=== PATIENT | female | born 1975 | race Caucasian/White ===

== ENCOUNTER → 2017-10-29 | Outpatient (CLI) | payer OTHER ==
--- NOTE | 2017-10-30 08:33 | RADIOLOGY IMAGING REPORT ---
FACILITY: [facility] [place] PATIENT NAME: ISABEL CHAPIN : [id number] MR: [id number] V: [id number] EXAM DATE: ORDERING PHYSICIAN: GERDA GOMEZ TECHNOLOGIST: Lydia Starkey PROCEDURE:BILATERAL DIGITAL SCREENING MAMMOGRAM WITH CAD ASSISTED INTERPRETATION & 3D TOMOSYNTHESIS COMPARISON:None this is the patient's baseline mammogram. INDICATIONS:screening FINDINGS: Moderately dense fibroglandular tissue is seen throughout the breasts. A small focal area of increased density posterior to mid nipple line on the Left CC view for which spot compression view is recommended. DIAGNOSTIC CATEGORY 0--INCOMPLETE: NEED ADDITIONAL IMAGING EVALUATION. RECOMMENDATIONS: ADDITIONAL MAMMOGRAPHIC VIEWS REQUIRED: LEFT BREAST. IMPRESSION: BIRADS 0: Incomplete. Addition views of Left breast is recommend as described. Dictated by: Lila Arevalo M.D. on 10/29/2017 at 15:37 Transcribed by: AMBER on 10/29/2017 at 15:50 Approved by: Lila Arevalo M.D. on 10/30/2017 at 8:32 [facility]
== END ==
LOC: MAMO 12:47
PROVIDERS: ATTEND Obstetrics & Gynecology
DX: Z12.31 Encounter for screening mammogram for malignant neoplasm of breast (principal); R92.8 Other abnormal and inconclusive findings on diagnostic imaging of breast
CPT/HCPCS: 77063; 77067

== ENCOUNTER → 2017-11-06 | Outpatient (CLI) | payer OTHER ==
--- NOTE | 2017-11-06 16:34 | RADIOLOGY IMAGING REPORT ---
FACILITY: [facility] PATIENT NAME: ISABEL CHAPIN : [id number] MR: [id number] V: [id number] EXAM DATE: ORDERING PHYSICIAN: GERDA GOMEZ TECHNOLOGIST: Carine Bauer PROCEDURE:LEFT DIGITAL DIAGNOSTIC MAMMOGRAM WITH 3D TOMOSYNTHESIS COMPARISON:Prior mammogram 10/29/17. INDICATIONS:FURTHER EVAL FINDINGS: The patient returns for Spot compression view in the Left CC projection rolled Left CC views and mediolateral view of the Left breast. The focal area of increased density posterior to mid nipple line on the prior Left CC view appears partially compressible and dissipated on the rolled views. This apparently represented summation shadow. There is no demonstration of malignant appearing mass or calcification in the Left breast. DIAGNOSTIC CATEGORY 2--BENIGN FINDING. RECOMMENDATIONS: ROUTINE MAMMOGRAM AND CLINICAL EVALUATION. IMPRESSION: BIRADS 2: Benign finding. No significant abnormality is seen. Dictated by: Lila Arevalo M.D. on 11/06/2017 at 14:52 Transcribed by: AMBER on 11/06/2017 at 15:34 Approved by: Lila Arevalo M.D. on 11/06/2017 at 16:32 [facility]
== END ==
LOC: MAMO 00:57
PROVIDERS: ATTEND Obstetrics & Gynecology
DX: R92.2 Inconclusive mammogram (principal)
CPT/HCPCS: 77061; 77065